=== PATIENT | female | born 1970 | race Two or more races ===

== ENCOUNTER 2021-01-11 09:35 | Emergency (ER) | payer OTHER ==
[~2021-01-11] VITALS: Ht 172.7 cm; Wt 70.3 kg
[2021-01-11] MEDS ORDERED: SYNTHROID100 MCG (09:55)
[2021-01-11] MEDS ORDERED: NORFLEX100MG PO (12:58)
[2021-01-11] MEDS ORDERED: KETO10TA2 PO (12:58)
== END 2021-01-11 13:07 | disposition home or self-care (01) ==
LOC: ER 09:35
DX: M54.59 Other low back pain (principal)